=== PATIENT | female | born 1990 | race Hispanic/Latino ===

== ENCOUNTER 2016-12-22 05:20 | Emergency (ER) | payer OTHER ==
[~2016-12-22] VITALS: Ht 167.6 cm; Wt 63.5 kg
[~2016-12-22 05:20] MED LIST: ALBUTEROL0.09 MG/A1 INH; BENADRYL ALLERG25 M1 PO; CLARITIN-D 24 H1 T24 PO; DUONEB 3 MG/3 ML3 ML INH/SOL; EPI IM; HYDROXYZINE50 MG PO; MEDROL DOSEPAK1 PAC PO; NAPROXEN500 MG PO; NASONEX0.05 MG/Ac INH; PREDNISONE50 MG PO; PROVENTIL0.09 MG/A1 INH; TRAMADOL50 MG PO
--- NOTE | 2016-12-22 05:29 | ED SKIN/ALLERGY COMPLAINT ---
History of Present Illness General Chief Complaint: Allergy Symptoms Stated Complaint: BIBA ALLERGY Source: patient, old records, EMS Exam Limitations: no limitations Vital Signs & Intake/Output Vital Signs & Intake/Output Vital Signs Date Time Temp Pulse Resp B/P B/P Pulse O2 O2 Flow FiO2 Mean Ox Delivery Rate 12/22 0525 96 Room Air 12/22 05 95.9 88 18 126/66 96 Room Air Allergies Uncoded Allergies: CATS (Severe, CHEST TIGHTNESS 04/24/12) POLLEN (Severe, CHEST TIGHTNESS, HIVES 04/24/12) Reconcile Medications Albuterol Sulfate (Albuterol Sulfate Hfa) 0.09 MG/Actuation MELISSA 2 PUFF INH Q4- 6 PRN PRN SHORTNESS OF BREATH 90 MCG PER PUFF Albuterol Sulfate (Proventil Hfa) 0.09 MG/Actuation MELISSA 2 PUFF INH Q4H PRN WHEEZING/SHORTNESS OF BREATH Albuterol Sulfate/Ipratropiu (Duoneb) 3 MG/3 ML NEB 1 Vial INH/CHASIDY 4XDP ALLERGIES DIPHENHYDRAMINE HCL (Benadryl) 25 MG SGL 1 CAP PO QPMP PRN allergies Epinephrine Hydrochloride (Epinephrine) 1 SYR SYR 1 INJ IM X1 PRN PRN SEVERE ALLERGIC REACTION Hydroxyzine Hydrochloride (Hydroxyzine) 50 MG TAB 1 TAB PO 4 TIMES/DAY PRN allergic reaction LORATADINE/PSEUDOEPHEDRINE (Claritin-D 24 Hour Tablet) 1 T24 T24 1 TAB PO DAILY allergies Methylprednisolone. (Medrol) 1 PAC PAC 1 PAC PO TAPER allergic reaction Mometasone Furoate (Nasonex) 0.05 MG/Actuation SPR 2 SPRAY INH DAILY allergies Naproxen 500 MG TAB 1 TAB PO BID PAIN Prednisone 50 MG TAB 1 TAB PO DAILY allergic reaction TRAMADOL HCL (Tramadol) 50 MG TAB 1 TAB PO Q6HR PRN PAIN Triage Note: PT BIBA FROM SISTERS HOME WHERE SISTER HAS A CAT AND PT HAS ALLERGY TO CATS. PT C/O CONGESTION. AT BEDSIDE Triage Nurses Notes Reviewed? yes : No Patient currently breastfeeds: No HPI: Patient's mother locked her out of the house so she had to stay with her sister. Her sister has a cat and the patient is allergic to cats. Patient was sleeping when she woke up feeling she cannot breathe. The patient called 91 and comes to the emergency room for evaluation. Patient denies any chest pain or chest tightness. There is no coughing. There is no orthopnea or dyspnea on exertion. There is no rash. There is no itching. Past History Travel History Traveled to [place] past 21 day No Medical History Any Pertinent Medical History? none Neurological: NONE EENT: NONE Cardiovascular: NONE Respiratory: NONE Gastrointestinal: NONE Hepatic: NONE Renal: NONE Musculoskeletal: NONE Psychiatric: NONE Endocrine: NONE Blood Disorders: NONE Cancer(s): NONE ADMIN ASSISTANT/Reproductive: NONE Other Medical Hx: environmental allergies Surgical History Surgical History: non-contributory, N Psychosocial History What is your primary language Marshallese Tobacco Use: Current Daily Use Daily Tobacco Use Amount/Type: => 5 Cigarettes daily ETOH Use: occasional use, 6 Illicit Drug Use: denies illicit drug use Family History Hx Contributory? No Review of Systems Review of Systems Constitutional: Reports: no symptoms. EENTM: Reports: no symptoms. Respiratory: Reports: see HPI, short of breath. Cardiovascular: Reports: no symptoms. GI: Reports: no symptoms. Genitourinary: Reports: no symptoms. Musculoskeletal: Reports: no symptoms. Skin: Reports: no symptoms. Neurological/Psychological: Reports: no symptoms. Hematologic/Endocrine: Reports: no symptoms. Immunologic/Allergic: Reports: no symptoms. All Other Systems: Reviewed and Negative Physical Exam Physical Exam General Appearance: well developed/nourished, mild distress Head: atraumatic Eyes: Bilateral: PERRL, EOMI. Ears, Nose, Throat: normal pharynx, normal ENT inspection, hearing grossly normal, NO EDEMA Neck: normal inspection, supple, NO STRIDOR Respiratory: normal breath sounds, chest non-tender, no respiratory distress, lungs clear Cardiovascular: regular rate/rhythm Gastrointestinal: normal bowel sounds, soft, non-tender Back: normal inspection Extremities: normal inspection, normal range of motion, no edema Neurologic/Psych: awake, alert, oriented x 3, normal mood/affect Skin: intact, normal color Lymphatic: no anterior cervical nacho Progress Differential Diagnosis: allergic reaction Plan of Care: Current Medications Sig/Fabiola Start time Last Medication Dose Stop Time Status Admin Diphenhydramine HCl 25 MG ONCE ONE 12/22 529 UNVr (Benadryl) 12/22 530 Departure Departure Disposition: HOME OR SELF CARE Condition: Stable Clinical Impression Primary Impression: Allergic reaction Referrals: JAXSON PEREIRA APRN (PCP/Family) Additional Instructions: RETURN NEEDED OR FOR ANY CONCERNS Departure Forms: Customer Survey General Discharge Information
[2016-12-22 06:32] VITALS: BP 109/63
== END 2016-12-22 06:38 ==
LOC: ERH 05:20
DX: T78.40XA Allergy, unspecified, initial encounter (principal)